=== PATIENT | female | born 1980 | race Caucasian/White ===

== ENCOUNTER 2022-11-29 16:24 | Emergency (ER) | payer MEDICAID | END 2022-11-29 19:00 | disposition left against medical advice (07) | LOC: ER 16:24 | DX: Z04.1 Encounter for examination and observation following transport accident (principal); Z53.21 Procedure and treatment not carried out due to patient leaving prior to being seen by health care provider; V89.2XXA Person injured in unspecified motor-vehicle accident, traffic, initial encounter; Y93.89 Activity, other specified; Y92.89 Other specified places as the place of occurrence of the external cause; Y99.8 Other external cause status ==

== ENCOUNTER 2023-07-03 07:56 | Day surgery (SDC) | payer MEDICAID ==
[2023-06-27 14:52] LABS: EOSINOPHILS # (AUTO) 0.1 X10'3 (0-0.9); MEAN CORPUSCULAR HEMOGLOBIN 24.5 PG (27.0-31.0); MEAN CORPUSCULAR HGB CONC 33.8 g/dL (33.0-36.5); MONOCYTES # (AUTO) 0.3 X10'3 (0-0.9)
[2023-06-27 14:54] LABS: BASOPHILS % (AUTO) 0.4 % (0-1); EOSINOPHILS % (AUTO) 1.8 % (0-6); LYMPHOCYTES # (AUTO) 2.3 X10'3 (1.1-4.8); LYMPHOCYTES % (AUTO) 38.2 % (21-51); MEAN CORPUSCULAR VOLUME 72.7 FL (78-98); MEAN PLATELET VOLUME 7.2 FL (7.4-10.4); NEUTROPHILS # (AUTO) 3.4 X10'3 (1.8-7.7); NEUTROPHILS % (AUTO) 54.6 % (42-75); PRE OP HEMATOCRIT 33.4 % (35.0-45.0); PRE OP HEMOGLOBIN 11.3 g/dL (12.0-16.0); PRE OP PLATELET COUNT 324 X10'3 (140-440); PRE OP WHITE BLOOD COUNT 6.1 10'3 (4.8-10.8); RED BLOOD COUNT 4.59 X10'6 (4.20-5.60)
[2023-06-27 15:04] LABS: ALBUMIN 3.1 G/DL (3.4-5.0); ALBUMIN/GLOBULIN RATIO 0.8 (1.1-1.5); ALKALINE PHOSPHATASE 50 IU/L (46-116); BLOOD UREA NITROGEN 11 MG/DL (7-18); BUN/CREATININE RATIO 19.3 (10.0-20.0); CALCIUM 8.5 MG/DL (8.5-10.1); CHLORIDE 104 MMOL/L (99-107); CREATININE 0.57 MG/DL (0.40-0.90); PRE OP ALT 8 U/L (30-65); PRE OP ANION GAP 5 (8-16); PRE OP AST 10 U/L (10-37); PRE OP BILIRUB, TOTAL 0.2 MG/DL (0.0-1.0); PRE OP GLUCOSE 84 MG/DL (70-104); PRE OP SODIUM 143 MMOL/L (135-145); TOTAL CARBON DIOXIDE 33.9 MMOL/L (24-32); eGFR > 90 ML/MIN
[2023-06-27 15:17] LABS: PRE OP POTASSIUM 2.9 MMOL/L (3.4-5.1)
[2023-07-03] VITALS (17 sets, daily range): BP systolic 120–162; BP diastolic 59–92; PULSE 69–94; RESP 7–19; TEMP 98.2; O2SAT 91–100
[~2023-07-03] VITALS: Ht 167.6 cm; Wt 81.0 kg
[~2023-07-03 07:56] MED LIST: BUPIVAcaine/PF 2.5 mg/ml (0.25%) 30ml vial ONE; INDOCYANINE GREEN 25 MG/10 ML VIAL IV ONE; LIDOcaine 1% 30ml preserv. free vial ONE; cefazolin 2gm/D5W 100mL 100 ML IV ONE; famotidine 20mg tablet PO ONE; ringers solution, lacted 1,000 ML IV SCH
[2023-07-03 08:38] LABS: ISTAT ANION GAP 15 (8-12); ISTAT BUN 6 mg/dL (7-18); ISTAT CL 102 mmol/L (99-107); ISTAT CREATININE 0.4 mg/dL (0.6-1.1); ISTAT GLUCOSE 88 mg/dL (70-104); ISTAT HGB 11.9 g/dl (12.0-16.0); ISTAT Hct 35 %PCV (35-45); ISTAT IONIZED CALCIUM 1.15 mmol/L (1.03-1.32); ISTAT K 3.2 mmol/L (3.5-5.1); ISTAT NA 142 mmol/L (135-145); ISTAT TOTAL CO2 25 mmol/L (24-32); ISTAT eGFR > 90 ML/MIN
[2023-07-03] MEDS ORDERED: fentaNYL/PF 50MCG/1 ML 2ML syringe ONE (09:56)
[2023-07-03] MEDS ORDERED: rocuronium 10mg/ml inj IV ONE (09:56)
[2023-07-03] MEDS ORDERED: sevoflurane 250ml liquid IH ONE (09:56)
[2023-07-03] MEDS ORDERED: propofol inj 20 ML IV ONE (09:56)
[2023-07-03] MEDS ORDERED: midazolam 1 mg/ML 2ml injection ONE (09:56)
[2023-07-03] MEDS ORDERED: dexamethasone sod phosphate 4mg/ml inj. ONE (09:59)
[2023-07-03] MEDS ORDERED: ondansetron/PF 4mg/2ml inj ONE (09:59)
[2023-07-03] MEDS ORDERED: proCHLORperazine 10 MG/2 ml inj IV PRN (10:00)
[2023-07-03] MEDS ORDERED: ringers solution, lacted 1,000 ML IV SCH (10:00)
[2023-07-03] MEDS ORDERED: ondansetron/PF 4mg/2ml inj IV PRN (10:00)
[2023-07-03] MEDS ORDERED: morphine 2 MG/ML inj. syringe IV PRN (10:00)
[2023-07-03] MEDS ORDERED: meperidine/PF 25mg/ml syringe IV PRN ×2 (10:00)
[2023-07-03] MEDS ORDERED: morphine 4 MG/ML inj SYRINge IV PRN (10:00)
[2023-07-03] MEDS ORDERED: glycopyrrolate 0.2mg/ml inj ONE (11:02)
[2023-07-03] MEDS ORDERED: neostigmine methylsulfate 1 MG/ML 10ml vial ONE (11:02)
[2023-07-03] MEDS ORDERED: HYDROcodone/acetaminophen 5mg/325mg tablet PO PRN (11:20)
[2023-07-03] MEDS: meperidine/PF 25mg/ml syringe IV PRN ×3 (11:31→12:40)
--- NOTE | 2023-07-03 11:53 | NUR ---
Received from OR via mary , accompanied by Anesthesiologist Sorin and report given by Anesthesiolgist and [facility]. Pt drowsy but appropriate. Nauseauted. Abdomen with 4 bandages covering lap sites, CDI. Will continue to monitor. Addendum: 07/03/23 at 1157 by Ciera Capps RN Amended: Links added.
--- NOTE | 2023-07-03 15:05 | NUR ---
Pt. comfortable, steady with ambulation, voided x1, tolerating PO food and fluids. dc instructions given and gone over with patient, verbalized understanding, Pt dc to home via wheelchair to private vehicle without incident.
== END 2023-07-03 15:05 | disposition home or self-care (01) ==
LOC: PAS 07:56
PROVIDERS: ATTEND Surgery
DX: K80.10 Calculus of gallbladder with chronic cholecystitis without obstruction (principal); F41.9 Anxiety disorder, unspecified; I44.0 Atrioventricular block, first degree; E66.9 Obesity, unspecified; Z68.28 Body mass index [BMI] 28.0-28.9, adult; Z87.891 Personal history of nicotine dependence; Z98.84 Bariatric surgery status; Z98.51 Tubal ligation status; Z98.890 Other specified postprocedural states; Z79.899 Other long term (current) drug therapy
CPT/HCPCS: 36415; 47563; 80047; 80053; 85025; 93005; J0690; J1100; J2175; J2250; J2405; J2704; J2710; J3010; J3490; J7030; J7120; S2900; Z7506; Z7508; Z7512; A4215; A4615; A4618; A7000

== ENCOUNTER 2023-07-05 14:04 | Emergency (ER) | payer MEDICAID ==
[~2023-07-05] VITALS: Ht 167.6 cm; Wt 81.8 kg
[2023-07-05 15:36] LABS: BASOPHILS % (AUTO) 0.4 % (0-1); EOSINOPHILS # (AUTO) 0.1 X10'3 (0-0.9); EOSINOPHILS % (AUTO) 1.3 % (0-6); HEMATOCRIT 33.6 % (35.0-45.0); LYMPHOCYTES # (AUTO) 2.5 X10'3 (1.1-4.8); LYMPHOCYTES % (AUTO) 26.7 % (21-51); MEAN CORPUSCULAR HEMOGLOBIN 24.4 PG (27.0-31.0); MEAN CORPUSCULAR HGB CONC 32.7 g/dL (33.0-36.5); MEAN CORPUSCULAR VOLUME 74.5 FL (78-98); MEAN PLATELET VOLUME 7.4 FL (7.4-10.4); MONOCYTES # (AUTO) 0.6 X10'3 (0-0.9); MONOCYTES % (AUTO) 6.5 % (2-12); NEUTROPHILS % (AUTO) 65.1 % (42-75); PLATELET COUNT 331 X10'3 (140-440); RED BLOOD COUNT 4.51 X10'6 (4.20-5.60); WHITE BLOOD COUNT 9.2 X10'3 (4.5-11.0)
[2023-07-05 15:50] LABS: ALANINE AMINOTRANSFERASE 16 U/L (12-78); ALBUMIN 3.1 G/DL (3.4-5.0); ALBUMIN/GLOBULIN RATIO 0.8 (1.1-1.5); ALKALINE PHOSPHATASE 59 IU/L (46-116); ANION GAP 6 (8-16); ASPARTATE AMINO TRANSFERASE 12 U/L (10-37); BILIRUBIN,TOTAL 0.4 MG/DL (0.1-1.0); BLOOD UREA NITROGEN 10 MG/DL (7-18); BUN/CREATININE RATIO 16.1 (10.0-20.0); CALCIUM 8.8 MG/DL (8.5-10.1); CHLORIDE 102 MMOL/L (99-107); CREATININE 0.62 MG/DL (0.40-0.90); GLUCOSE 90 MG/DL (70-104); LIPASE < 50 U/L (73-393); MAGNESIUM 1.8 MG/DL (1.5-2.4); POTASSIUM 3.5 MMOL/L (3.5-5.1); SODIUM 140 MMOL/L (135-145); TOTAL CARBON DIOXIDE 32.1 MMOL/L (24-32); TOTAL PROTEIN 7.2 G/DL (6.4-8.2); eCRCL 111 ML/MIN; eGFR > 90 ML/MIN
[2023-07-05 18:40] LABS: BILIRUBIN,URINE SMALL (Neg); CLARITY,URINE SLIGHTLY CLOUDY (Clear); GLUCOSE, URINE NEGATIVE (Neg); KETONES,URINE 15 mg/dl (Neg); LEUKOCYTE ESTERASE ,URINE NEGATIVE (Neg); NITRITES, URINE NEGATIVE (Neg); OCCULT BLOOD,URINE MODERATE (Neg); PH,URINE 5.5 (4.8-8.0); PROTEIN,URINE NEGATIVE (Neg)
[2023-07-05 19:21] LABS: COLOR,URINE DARK YELLOW (Yellow); UA COLLECTION TYPE NON-SPECIFIED
[2023-07-05 19:25] LABS: BACTERIA,URINE 2+ /HPF (Neg); MUCUS STRANDS MANY /LPF (Neg); WBC,URINE 0-4 /HPF (0-4)
[2023-07-05] MEDS ORDERED: HYDROmorphone 1 mg/ml syringe IM ONE (19:25)
[2023-07-05] MEDS ORDERED: ondansetron/PF 4mg/2ml inj IM ONE (19:25)
[2023-07-05 19:26] LABS: SQUAMOUS EPITHELIAL CELL,UR MANY /LPF (FEW)
[2023-07-05 19:55] VITALS: BP 139/80; PULSE 74; RESP 16; TEMP 98; O2SAT 100
== END 2023-07-05 20:00 | disposition home or self-care (01) ==
LOC: ER 14:06
DX: R10.84 Generalized abdominal pain (principal); Z90.49 Acquired absence of other specified parts of digestive tract
CPT/HCPCS: 36415; 80053; 81001; 83690; 83735; 85025; 96372; 99284; J1170; J2405

== ENCOUNTER 2024-01-29 14:23 | Emergency (ER) | payer MEDICAID ==
[~2024-01-29] VITALS: Ht 167.6 cm; Wt 71.8 kg
[~2024-01-29 14:23] MED LIST changes: -BUPIVAcaine/PF 2.5 mg/ml (0.25%) 30ml vial ONE; +CALC-97 PO; +FAMO20TA8 PO; +FER300L PO; -INDOCYANINE GREEN 25 MG/10 ML VIAL IV ONE; -LIDOcaine 1% 30ml preserv. free vial ONE; +MULT-1085 PO; -cefazolin 2gm/D5W 100mL 100 ML IV ONE; -famotidine 20mg tablet PO ONE; -ringers solution, lacted 1,000 ML IV SCH
[2024-01-29 14:29] VITALS: TEMP 99.1
[2024-01-29 15:06] LABS: BASOPHILS % (AUTO) 0.4 % (0-1); EOSINOPHILS # (AUTO) 0.1 X10'3 (0-0.9); EOSINOPHILS % (AUTO) 1.7 % (0-6); HEMATOCRIT 28.5 % (35.0-45.0); HEMOGLOBIN 9.1 g/dl (12.0-16.0); LYMPHOCYTES # (AUTO) 2.3 X10'3 (1.1-4.8); LYMPHOCYTES % (AUTO) 28.3 % (21-51); MEAN CORPUSCULAR HEMOGLOBIN 21.9 PG (27.0-31.0); MEAN CORPUSCULAR HGB CONC 32.1 g/dL (33.0-36.5); MEAN CORPUSCULAR VOLUME 68.4 FL (78-98); MEAN PLATELET VOLUME 7.1 FL (7.4-10.4); MONOCYTES # (AUTO) 0.5 X10'3 (0-0.9); MONOCYTES % (AUTO) 5.9 % (2-12); NEUTROPHILS # (AUTO) 5.1 X10'3 (1.8-7.7); NEUTROPHILS % (AUTO) 63.7 % (42-75); PLATELET COUNT 345 X10'3 (140-440); RED BLOOD COUNT 4.17 X10'6 (4.20-5.60); RED CELL DISTRIBUTION WIDTH 15.9 % (11.5-14.5)
[2024-01-29 15:19] VITALS: BP 130/73; PULSE 72; RESP 16; O2SAT 99
[2024-01-29 15:19] LABS: ALANINE AMINOTRANSFERASE 17 U/L (12-78); ALBUMIN 3.2 G/DL (3.4-5.0); ALBUMIN/GLOBULIN RATIO 0.7 (1.1-1.5); ALKALINE PHOSPHATASE 52 IU/L (46-116); ANION GAP 9 (8-16); ASPARTATE AMINO TRANSFERASE 14 U/L (10-37); BILIRUBIN,TOTAL 0.2 MG/DL (0.1-1.0); BLOOD UREA NITROGEN 16 MG/DL (7-18); BUN/CREATININE RATIO 27.1 (10.0-20.0); CALCIUM 8.2 MG/DL (8.5-10.1); CHLORIDE 107 MMOL/L (99-107); CREATININE 0.59 MG/DL (0.40-0.90); GLUCOSE 84 MG/DL (70-104); LIPASE 32 U/L (16-77); POTASSIUM 3.5 MMOL/L (3.5-5.1); SODIUM 142 MMOL/L (135-145); TOTAL CARBON DIOXIDE 25.7 MMOL/L (24-32); TOTAL PROTEIN 7.8 G/DL (6.4-8.2); eCRCL 115 ML/MIN; eGFR > 90 ML/MIN
[2024-01-29 15:39] LABS: MICROCYTOSIS 2+; PLATELET ESTIMATE NORMAL; STOMATOCYTES FEW
[2024-01-29 15:40] LABS: ELLIPTOCYTES FEW
[2024-01-29 15:50] LABS: BILIRUBIN,URINE NEGATIVE (Neg); CLARITY,URINE SLIGHTLY CLOUDY (Clear); COLOR,URINE YELLOW (Yellow); GLUCOSE, URINE NEGATIVE (Neg); KETONES,URINE NEGATIVE (Neg); LEUKOCYTE ESTERASE ,URINE SMALL (Neg); NITRITES, URINE NEGATIVE (Neg); OCCULT BLOOD,URINE SMALL (Neg); PH,URINE 6.5 (4.8-8.0); PROTEIN,URINE NEGATIVE (Neg)
[2024-01-29 15:55] LABS: BACTERIA,URINE 4+ /HPF (Neg); MUCUS STRANDS MODERATE /LPF (Neg); SQUAMOUS EPITHELIAL CELL,UR MANY /LPF (FEW); UA COLLECTION TYPE CLN CATCH MIDSTREAM
[2024-01-29 15:57] LABS: YEAST MODERATE /HPF (NEGATIVE)
[2024-01-29 15:58] LABS: TRANSITIONAL EPI CELLS,URINE FEW /HPF; WBC CLUMPS,URINE FEW /HPF (NEGATIVE); WBC,URINE 30-50 /HPF (0-4)
[2024-01-29] MEDS ORDERED: CEPH-585 PO (16:48)
[2024-01-29] MEDS ORDERED: FLUC150T22 PO (16:51)
== END 2024-01-29 17:23 | disposition home or self-care (01) ==
LOC: ER 14:23
DX: N39.0 Urinary tract infection, site not specified (principal); D64.9 Anemia, unspecified; Z98.890 Other specified postprocedural states; Z88.8 Allergy status to other drugs, medicaments and biological substances; Z88.6 Allergy status to analgesic agent; Z79.2 Long term (current) use of antibiotics; Z79.899 Other long term (current) drug therapy
CPT/HCPCS: 36415; 80053; 81001; 83690; 85008; 85025; 99283

== ENCOUNTER 2024-07-18 04:35 | Emergency (ER) | payer MEDICAID ==
[~2024-07-18] VITALS: Ht 165.1 cm; Wt 73.8 kg
[2024-07-18 05:38] LABS: BILIRUBIN,URINE NEGATIVE (Neg); CLARITY,URINE SLIGHTLY CLOUDY (Clear); COLOR,URINE YELLOW (Yellow); GLUCOSE, URINE NEGATIVE (Neg); KETONES,URINE NEGATIVE (Neg); LEUKOCYTE ESTERASE ,URINE NEGATIVE (Neg); NITRITES, URINE POSITIVE (Neg); OCCULT BLOOD,URINE NEGATIVE (Neg); PH,URINE 6.5 (4.8-8.0); PROTEIN,URINE NEGATIVE (Neg)
[2024-07-18 05:43] LABS: URINE HCG NEGATIVE (NEG)
[2024-07-18 05:47] LABS: BASOPHILS % (AUTO) 0.5 % (0-1); EOSINOPHILS # (AUTO) 0.2 X10'3 (0-0.9); HEMATOCRIT 31.4 % (35.0-45.0); HEMOGLOBIN 9.9 g/dl (12.0-16.0); LYMPHOCYTES # (AUTO) 2.3 X10'3 (1.1-4.8); LYMPHOCYTES % (AUTO) 28.9 % (21-51); MEAN CORPUSCULAR HEMOGLOBIN 21.4 PG (27.0-31.0); MEAN CORPUSCULAR HGB CONC 31.4 g/dL (33.0-36.5); MEAN CORPUSCULAR VOLUME 68.2 FL (78-98); MEAN PLATELET VOLUME 7.5 FL (7.4-10.4); MONOCYTES # (AUTO) 0.5 X10'3 (0-0.9); MONOCYTES % (AUTO) 6.1 % (2-12); NEUTROPHILS # (AUTO) 5.1 X10'3 (1.8-7.7); NEUTROPHILS % (AUTO) 62.5 % (42-75); PLATELET COUNT 328 X10'3 (140-440); RED BLOOD COUNT 4.61 X10'6 (4.20-5.60); RED CELL DISTRIBUTION WIDTH 15.8 % (11.5-14.5); WHITE BLOOD COUNT 8.1 X10'3 (4.5-11.0)
[2024-07-18 05:52] LABS: ALANINE AMINOTRANSFERASE 22 U/L (12-78); ALBUMIN 3.5 G/DL (3.4-5.0); ALBUMIN/GLOBULIN RATIO 0.9 (1.1-1.5); ALKALINE PHOSPHATASE 45 IU/L (46-116); ANION GAP 8 (8-16); ASPARTATE AMINO TRANSFERASE 12 U/L (10-37); BILIRUBIN,TOTAL 0.2 MG/DL (0.1-1.0); BLOOD UREA NITROGEN 9 MG/DL (7-18); BUN/CREATININE RATIO 14.8 (10.0-20.0); CALCIUM 8.7 MG/DL (8.5-10.1); CHLORIDE 106 MMOL/L (99-107); CREATININE 0.61 MG/DL (0.40-0.90); GLUCOSE 79 MG/DL (70-104); LIPASE 46 U/L (16-77); POTASSIUM 3.4 MMOL/L (3.5-5.1); SODIUM 141 MMOL/L (135-145); TOTAL CARBON DIOXIDE 27.5 MMOL/L (24-32); TOTAL PROTEIN 7.3 G/DL (6.4-8.2); eCRCL 107 ML/MIN; eGFR > 90 ML/MIN
[2024-07-18 05:53] LABS: UA COLLECTION TYPE CLN CATCH MIDSTREAM
[2024-07-18 05:54] LABS: BACTERIA,URINE 4+ /HPF (Neg); MUCUS STRANDS NONE SEEN /LPF (Neg); RBC,URINE 0-2 /HPF (0-2); SQUAMOUS EPITHELIAL CELL,UR MODERATE /LPF (FEW); WBC,URINE 0-4 /HPF (0-4)
[2024-07-18 06:08] LABS: MICROCYTOSIS 2+; PLATELET ESTIMATE NORMAL
[2024-07-18 06:10] LABS: ELLIPTOCYTES 1+
[2024-07-18 06:12] LABS: ACANTHOCYTES FEW; HYPOCHROMASIA 1+
[2024-07-18] MEDS ORDERED: CEPH-585 PO (08:58)
[2024-07-18] MEDS ORDERED: DICY10CA88 PO (08:58)
[2024-07-18] MEDS ORDERED: DIF150T PO (08:59)
[2024-07-18] MEDS: cephalexin 250mg capsule PO ONE (09:14)
[2024-07-18] MEDS: potassium Cl 20 mEq SR tablet PO STA (09:33)
[2024-07-18 09:36] VITALS: BP 115/72; PULSE 83; RESP 16; TEMP 97.7; O2SAT 98
== END 2024-07-18 09:37 | disposition home or self-care (01) ==
LOC: ER 04:35
DX: N39.0 Urinary tract infection, site not specified (principal); R10.9 Unspecified abdominal pain; Z88.6 Allergy status to analgesic agent; Z79.899 Other long term (current) drug therapy
CPT/HCPCS: 80053; 81001; 81025; 83690; 85008; 85025; 87077; 87088; 87186; 99285